=== PATIENT | male | born 1980 | race Caucasian/White ===

== ENCOUNTER 2016-06-22 11:22 | Emergency (ER) | payer MEDICAID, OTHER ==
[~2016-06-22] VITALS: Ht 175.3 cm; Wt 72.6 kg
[~2016-06-22 11:22] MED LIST: BACT2CRE TOP; OXAZ10CA PO; [UNRECOGNIZED DRUG - REMARK]
[2016-06-22 11:24] VITALS: BP 122/79
--- NOTE | 2016-06-22 12:03 | REP ---
CT Head without contrast HISTORY: Head injury COMPARISON: 09/25/2015 There is no intraparenchymal hemorrhage, acute infarct, mass or midline shift. The ventricular system is normal in appearance. There is no extra cerebral collection. There is no fracture. The visualized sinuses are clear. IMPRESSION: There is no intracranial lesion. Signed by Porter Montes De Oca MD 06/22/2016 11:55 A
== END 2016-06-22 17:36 | disposition home or self-care (01) ==
LOC: M ED 13:39
DX: S09.90XA Unspecified injury of head, initial encounter (principal); F10.120 Alcohol abuse with intoxication, uncomplicated; W19.XXXA Unspecified fall, initial encounter; Y92.89 Other specified places as the place of occurrence of the external cause; Y93.89 Activity, other specified; Y99.0 Civilian activity done for income or pay

== ENCOUNTER → 2016-08-29 | Outpatient (REF) ==
[~2016-08-29] MED LIST changes: -OXAZ10CA PO; +OXAZ10CA3 PO
== END ==
LOC: M LAB 12:33
DX: Z02.89 Encounter for other administrative examinations (principal)